=== PATIENT | male | born 1965 ===

== ENCOUNTER 2017-02-27 17:30 | Emergency (ER) | payer SELFPAY ==
[2017-02-27 17:40] VITALS: BP 132/84; PULSE 101; RESP 20; TEMP 98.5; O2SAT 98
--- NOTE | 2017-02-27 18:03 | C.PDOC ---
History Of Present Illness 51 year old male who presents to the ER with a complaint of positional and digitally reproducible left anterior chest discomfort for the past week. Patient states he just immigrated from [place] last month; he notes having a Hx of diabetes and wants to be connected to our clinic system. Patient reports having good compliance with his metformin; which he takes 1000ml twice a day. Denies SOB, nausea, or vomiting. Time Seen by Provider: 02/27/17 17:50 Chief Complaint (Nursing): Chest Pain History Per: Patient History/Exam Limitations: no limitations Onset/Duration Of Symptoms: Days Current Symptoms Are (Timing): Still Present Associated Symptoms: denies: Nausea, Dyspnea Modifying Factors: None Exacerbating Factors: None Alleviating Factors: None Recent travel outside of the [place]: No Past Medical History Reviewed: Historical Data, Nursing Documentation, Vital Signs Vital Signs: Last Vital Signs Temp 98.5 F 02/27/17 17:30 Pulse 101 H 02/27/17 17:30 Resp 20 02/27/17 17:30 BP 132/84 02/27/17 18:21 Pulse Ox 98 02/27/17 18:03 - Medical History PMH: HTN Surgical History: No Surg Hx Family History: States: Unknown Family Hx - Social History Hx Alcohol Use: No Hx Substance Use: No - Immunization History Hx Tetanus Toxoid Vaccination: No Hx Influenza Vaccination: No Hx Pneumococcal Vaccination: No Review Of Systems Respiratory: Negative for: Shortness of Breath, SOB with Excertion Gastrointestinal: Negative for: Nausea, Vomiting Musculoskeletal: Positive for: Other (Chest wall pain) Physical Exam - Physical Exam Appears: Non-toxic Skin: Normal Color, Warm, Dry Head: Atraumatic, Normacephalic Oral Mucosa: Moist Chest: Symmetrical, Tenderness (Positionally and digitally reproducible to mid axillary line) Cardiovascular: Rhythm Regular, No Murmur Respiratory: Normal Breath Sounds, No Rales, No Rhonchi, No Wheezing Neurological/Psych: Oriented x3, Normal Speech, Normal Cognition ED Course And Treatment ECG: Interpreted By Me ECG Rhythm: Sinus Rhythm ECG Interpretation: Normal Rate From EC O2 Sat by Pulse Oximetry: 98 Pulse Ox Interpretation: Normal Progress Note: Vasotec and motrin administered. EKG ordered. Reevaluation Time: 18:01 Reassessment Condition: Improved Medical Decision Making Medical Decision Making: Arrived from [place] 1 month, interested in outpatient Clinic f/u. mild/mod elevated BP's @ home (SBP 150's occasionally @ night) Start ACEI Digitally and positionally reproducable L chest discomfort for "weeks" is c/w costochoncritis, normal EKG defer further w/u w informed consent. Disposition Doctor Will See Patient In The: Office Counseled Patient/Family Regarding: Studies Performed, Diagnosis - Disposition Referrals: [facility] [Outside] [facility] [Outside] Disposition: HOME/ ROUTINE Disposition Time: 18:03 Condition: GOOD Additional Instructions: Ibuprofeno 600 mg cada 6 horas jose necessario para dolor del pecho que es reducible. Pepcid 20 mg en la noche para evitar irritacion' del estomago debido al ibuprofeno Vasotec 20 mg diario para oswald pression siddhartha con diabetes. Sigue en la [facility] (gratis) en 2-3 semanas [facility] Prescriptions: Enalapril Maleate [Vasotec] 20 mg PO DAILY #30 tab MetFORMIN [glucoPHAGE] 1,000 mg PO AC #60 tab Instructions: Costochondritis (ED), Diabetes Mellitus Type 2 in Adults (DC), Hypertension (ED) Print Language: MONGOLIAN - Clinical Impression Clinical Impression: Chest discomfort, Hypertension, Diabetes 1.5, managed as type 2 - Scribe Statement The provider has reviewed the documentation as recorded by the Scribe Filippo Nuñez All medical record entries made by the Scribe were at my direction and personally dictated by me. I have reviewed the chart and agree that the record accurately reflects my personal performance of the history, physical exam, medical decision making, and the department course for this patient. I have also personally directed, reviewed, and agree with the discharge instructions and disposition.
--- NOTE | 2017-03-03 12:38 | CARD ---
APPROVED REPORT EKG Measurement Heart [id number] <Conclusion> Normal sinus rhythm Minimal voltage criteria for LVH, may be normal variant Nonspecific T wave abnormality Abnormal ECG
== END 2017-02-27 18:27 | disposition home or self-care (01) ==
LOC: C.ER 17:30
DX: R07.89 Other chest pain (principal); I10 Essential (primary) hypertension; E11.9 Type 2 diabetes mellitus without complications